=== PATIENT | female | born 1995 | race Asian ===

== ENCOUNTER → 2021-01-12 10:09 | Outpatient (CLI) | payer OTHER, MEDICAID, SELFPAY ==
[2021-01-12 12:48] LABS: HCG Quantitative /Beta subunit 1967.3 mIU/mL
== END ==
PROVIDERS: PCP Family Medicine; Referring Provider Family Medicine; Visit Provider Family Medicine
DX: Z34.90 Encounter for supervision of normal pregnancy, unspecified, unspecified trimester (principal)
CPT/HCPCS: 36415; 84702

== ENCOUNTER → 2021-01-16 11:33 | Outpatient (CLI) | payer OTHER, MEDICAID, SELFPAY ==
[2021-01-16 14:27] LABS: HCG Quantitative /Beta subunit 11183 mIU/mL
== END ==
PROVIDERS: PCP Family Medicine; Referring Provider Family Medicine; Visit Provider Family Medicine
DX: Z34.90 Encounter for supervision of normal pregnancy, unspecified, unspecified trimester (principal)
CPT/HCPCS: 36415; 84702

== ENCOUNTER → 2021-02-05 11:02 | Outpatient (CLI) | payer OTHER, MEDICAID, SELFPAY ==
[2021-02-05 12:20] LABS: Add Manual Diff / Slide Review NO; Basophils Absolute Auto 0 /uL (0-100); Basophils Percent Auto 0.2 % (0-2); Eosinophils Absolute Auto 0 /uL (0-450); Eosinophils Percent Auto 0.2 % (2-4); Hematocrit 39.4 % (36-46); Hemoglobin 13.3 g/dL (12.0-16.0); Lymphocytes Absolute Auto 1200 /uL (1100-4500); Lymphocytes Percent Auto 16.3 % (25-40); Mean Corpuscular HGB Conc 33.8 % (30-36); Mean Corpuscular Hemoglobin 30.8 PG (26-34); Monocytes Absolute Auto 500 /uL (0-900); Monocytes Percent Auto 6.5 % (3-14); Neutrophils Absolute Auto 5700 /uL (1500-7000); Neutrophils Percent Auto 76.8 % (50-75); Platelet Count 249 X10^3/uL (150-400); Red Blood Cell Count 4.32 X10^6/uL (4.0-5.2); Red Cell Distribution Width 12.7 % (11.6-14.8); White Blood Cell Count 7.4 X10^3/uL (4.5-11.0)
[2021-02-05 13:55] LABS: Appearance Urine UA CLEAR; Bacteria Urine None Seen; Bilirubin Urine UA NEGATIVE (NEGATIVE); Color Urine UA YELLOW; Glucose Urine UA NEGATIVE (Negative); Ketones Urine UA NEGATIVE (NEGATIVE); Leukocyte Esterase Urine UA 1+ (NEGATIVE); Nitrite Urine UA NEGATIVE (Negative); Occult Blood Urine UA NEGATIVE (Negative); Protein Urine UA NEGATIVE (Negative); Specific Gravity Urine UA <=1.005 (1.000-1.035); Urobilinogen Urine UA 0.2 E.U./dL (0.2); WBC Urine None Seen (0-5/HPF)
[2021-02-05 14:25] LABS: RBC Urine 0-1/HPF (0-5/HPF); Squamous Epithelial Cell Urine 5-10 /HPF (0-5/HPF)
[2021-02-05 17:28] LABS: HIV 1 & 2 Ab/Ag 4th Gen Combo NEGATIVE (NEGATIVE); Hep C Virus Ab w/Reflex Quant NEGATIVE s/c (NEGATIVE); Hepatitis B Surface Antigen NEGATIVE s/c (NEGATIVE); Rubella Antibody IgG 17.8 IU/mL (>15)
[2021-02-06 08:16] LABS: RPR Screen Non Reactive (Non Reactive)
[2021-02-06 08:46] LABS: Varicella IgG Antibody 1383 index (Immune >165)
== END ==
PROVIDERS: PCP Family Medicine; Referring Provider Family Medicine; Visit Provider Family Medicine
DX: Z34.01 Encounter for supervision of normal first pregnancy, first trimester (principal)
CPT/HCPCS: 36415; 80055; 81003; 81015; 86787; 86803; 86850; 86900; 86901; 87086; 87389

== ENCOUNTER → 2021-04-04 11:43 | Outpatient (CLI) | payer OTHER, MEDICAID, SELFPAY ==
[2021-04-06 21:14] LABS: AFP, Serum 63.4 ng/mL (.); Calc Gestational Age EDD (.); Estriol, Free 2.39 ng/mL (.); Inhibin A, Dimeric 183.95 pg/mL (.); Inhibin A, MoM 1.02 (.); Maternal Ethnicity Other (.); Maternal Weight 121 lbs (.); Number of Fetuses No (.); OSBR Risk 1 IN 2591 (.); Results Report (.); Test Results *Screen Negative* (.); hCG, MoM 1.64 (.); hCG, Serum 70593 mIU/mL (.)
== END ==
PROVIDERS: PCP Family Medicine; Referring Provider Family Medicine; Visit Provider Family Medicine
DX: Z34.90 Encounter for supervision of normal pregnancy, unspecified, unspecified trimester (principal); Z3A.16 16 weeks gestation of pregnancy
CPT/HCPCS: 36415; 82105; 82677; 84702; 86336

== ENCOUNTER → 2021-04-26 10:26 | Outpatient (CLI) | payer OTHER, MEDICAID, SELFPAY ==
--- NOTE | 2021-04-26 10:28 | DI.US.S_ITS ---
PROCEDURE: US OB >= 14 WEEKS FETUS INDICATIONS: ANATOMY US OUTSIDE/PRIOR DATING DATA: Last menstrual period (LMP): December 10, 2020 . LMP-based estimated date of delivery (GISEL): September 16, 2021 . First dating scan (date and location): [facility]; April 26, 2021 . Estimated date of delivery (GISEL) from first dating scan: September 15, 2021 . TECHNIQUE: Real-time scanning was performed of the fetus, with image documentation and biometric measurements. COMPARISON: None. FINDINGS: General: A single living intrauterine gestation is present. Presentation: Variable. Placenta: Placental position is posterior , without previa. Amniotic fluid index: 12.3 cm, normal range is 5-24 cm. heart rate: 153 beats per minute. Maternal cervical canal: 4.2 cm long. Normal lower limit is 2.5 cm. biometrics: Biparietal diameter: 4.5 cm Head circumference: 16.5 cm Abdominal circumference: 14.3 cm Femur length: 3.4 cm Composite gestational age from present scan: 19 weeks, 5 days Estimated weight and percentile: 324 g +/-48 g; 69th percentile Measurement variability for biometric dating: +/- 7 days from 14 weeks to 15 weeks 6 days gestation, +/- 10 days from 16 weeks to 21 weeks 6 days gestation, +/- 2 weeks from 22 weeks to 27 weeks 6 days gestation, +/- 3 weeks for 28 weeks gestation or later. weight reference: 4500 g or EFW >90/95% is considered macrosomia or large for gestational age. EFW <10% is small for gestational age. EFW 5% or less is considered intra-uterine growth restriction. Anatomic survey: Neuro: Ventricles are non-dilated at less than 10 mm. Bilateral choroid plexus cysts are is noted. Cisterna magna is normal at 3-11 mm. Cerebellum is normal in size and morphology. Nuchal skin fold: Normal at less than 6 mm between 14-21 weeks gestational age. Face: Nose and lips, facial profile are normal. Spine: No evidence for spina bifida. Heart: 4-chambered heart is present, with normal ventricular outflow tracts. Diaphragm: Diaphragm is intact. Stomach: Left-sided stomach is present. Kidneys: No hydronephrosis. Normal is less than 5 mm in 2nd trimester, less than 7 mm in 3rd trimester. Cord: 3-vessel cord and inserts approximately 1 cm from the placental edge. Bladder: Normal in size. Extremities: All 4 extremities identified. IMPRESSION: Live single intrauterine gestation as detailed above. Dictated by: Mj Schuster M.D. on 04/26/2021 at 13:42 Approved by: Mj Schuster M.D. on 04/26/2021 at 13:48
== END ==
PROVIDERS: PCP Family Medicine; Referring Provider Family Medicine; Visit Provider Family Medicine
DX: Z34.90 Encounter for supervision of normal pregnancy, unspecified, unspecified trimester (principal); Z3A.20 20 weeks gestation of pregnancy
CPT/HCPCS: 76811

== ENCOUNTER → 2021-06-25 09:53 | Outpatient (CLI) | payer OTHER, MEDICAID, SELFPAY ==
[2021-06-25 14:48] LABS: Hematocrit 35.3 % (36-46); Hemoglobin 12.1 g/dL (12.0-16.0)
[2021-06-25 15:24] LABS: GTT (PREG) 1 Hour PP 50gm Dose 133 mg/dL (76-139)
== END ==
PROVIDERS: PCP Family Medicine; Referring Provider Family Medicine; Visit Provider Family Medicine
DX: Z34.90 Encounter for supervision of normal pregnancy, unspecified, unspecified trimester (principal); Z3A.26 26 weeks gestation of pregnancy
CPT/HCPCS: 36415; 82950; 85014; 85018; 86850

== ENCOUNTER → 2021-08-27 09:28 | Outpatient (CLI) | payer OTHER, MEDICAID, SELFPAY ==
[2021-08-28 09:14] LABS: Strep Grp B PCR NEG for Grp B Strep
== END ==
PROVIDERS: PCP Family Medicine; Visit Provider Family Medicine
DX: Z36.85 Encounter for antenatal screening for Streptococcus B (principal); Z3A.37 37 weeks gestation of pregnancy
CPT/HCPCS: 87653

== ENCOUNTER 2021-09-07 21:13 | Inpatient (IN) | payer OTHER, MEDICAID, SELFPAY ==
[2021-09-07 22:25] VITALS: BP 121/70
[2021-09-07 23:11] LABS: Add Manual Diff / Slide Review NO; Basophils Absolute Auto 100 /uL (0-100); Basophils Percent Auto 0.7 % (0-2); Eosinophils Absolute Auto 0 /uL (0-450); Eosinophils Percent Auto 0.4 % (2-4); Hematocrit 39.9 % (36-46); Hemoglobin 13.5 g/dL (12.0-16.0); Lymphocytes Absolute Auto 1700 /uL (1100-4500); Mean Corpuscular HGB Conc 33.7 % (30-36); Mean Corpuscular Hemoglobin 31.1 PG (26-34); Mean Corpuscular Volume 92.2 fL (80-100); Monocytes Absolute Auto 600 /uL (0-900); Monocytes Percent Auto 8.2 % (3-14); Neutrophils Absolute Auto 5500 /uL (1500-7000); Neutrophils Percent Auto 69.7 % (50-75); Platelet Count 192 X10^3/uL (150-400); Red Blood Cell Count 4.33 X10^6/uL (4.0-5.2); Red Cell Distribution Width 13.7 % (11.6-14.8); White Blood Cell Count 7.9 X10^3/uL (4.5-11.0)
[2021-09-07 23:30] LABS: COVID19 -Nasal RAPID Negative (Negative)
--- NOTE | 2021-09-08 02:22 | PM.OBPRVD ---
Labor & Delivery Delivery date: 09/08/21 Cervical ripening method: none Induction method: none Delivery monitor: external FHT Route of delivery: Episiotomy description: None L&D Laceration Description: Perineal - 2nd Degree Delivery repair: vicryl Estimated blood loss (mL): 200 Anesthesia Type: None Complications: None Narrative: PROCEDURE: at 38w6d presented in active labor and was admitted to Labor and Delivery. The patient progressed through the 1st stage over 8 hours. Pain was controlled with natural methods. Intermittent auscultation showed reassuring FHT. The patient progressed through the 2nd stage over 40 minutes and delivered a viable female infant with APGARs 9/9 at 1:44 via without complications. The cord was cut and clamped after it stopped pulsating. The perineum and vagina were inspected with 2nd degree perineal laceration repaired with 2-O Vicryl. PREPROCEDURE DIAGNOSIS: Intrauterine at 38w6d GBS negative RH positive POSTPROCEDURE DIAGNOSIS: Intrauterine at 38w6d, delivered Same as preprocedure Baby 1: Infant gender: Female Presentation: vertex Position: Right Occiput Anterior Placenta delivery description: Spontaneous Cord Vessel Description: 3 Vessels score (1 min): 9 score (5 min): 9 weight: 7 lb 0.03 oz Plan for aftercare: Routine care
--- NOTE | 2021-09-08 02:24 | P.HPOB_ITS ---
OB HPI Date/Time Date of admission: 09/07/21 Date Patient Seen: 09/08/21 Time Patient Seen: 00:50 History of Present Condition Chief complaint: maternity GISEL Calculator Estimated Delivery Date Method Current WG Current Estimate 09/16/21 Manual 38w 6d Final GISEL - NATALYA Other Estimates 09/16/21 LMP (Certain) 38w 6d 09/17/21 Ultrasound #1 38w 5d Estimated Gestational Age (weeks): 38w6d : 1 Para: 0 Narrative: Pt is a 26yo at 38w6d who presented with regular painful contractions. She reports contractions starting last night, increasing in frequency and intensity since then. No LOF or vaginal bleeding. She is feeling her baby move regularly . There have been no complications with the pts . care: good care, initiated at week # (8) and pounds weight gain (25) Dating criteria OB: LMP confirmed by 1st trimester US Ultrasounds: normal 1st trimester US and normal mid trimester US Obstetrical complications: none Medical complications OB: none Preadmission Labs Last OB Lab Results: Blood Type O Positive 09/07/21 23:00 09/07/21 Antibody Screen Negative 09/07/21 23:00 09/07/21 Hematocrit 39.9 % (36-46) 09/07/21 23:00 09/07/21 Hemoglobin 13.5 g/dL (12.0-16.0) 09/07/21 23:00 09/07/21 Hepatitis B Surface Antigen Negative s/c (NEGATIVE) 02/05/21 11:09 02/05/21 Hepatitis C Antibody Negative s/c (NEGATIVE) 02/05/21 11:09 02/05/21 Rubella Antibody 17.8 IU/mL (>15) 02/05/21 11:09 02/05/21 Varicella-Zoster IgG Antibody 1383 index (Immune >165) 02/05/21 11:09 02/05/21 Glucose 1 Hour 133 mg/dL (76-139) 06/25/21 10:43 06/25/21 Group B Streptococcus (PCR) Neg for grp b strep 08/27/21 09:28 08/27/21 -: Urine: negative Genetic Screens: Quad screen: Normal External Labs -: Urine: negative Evaluation Evaluation Baseline heart rate: 150 Variability: Moderate (11-25) monitor accelerations: Present Monitor Decelerations: Absent Contraction Frequency (minutes): 3 Status: Category l Dilation (cm): 10 Effacement (%): 100 station: +2 [facility] Medical History (Updated 01/29/21 @ 16:06 by Daphnie Nobles RN) Allergies (~1999) Eczema Headache Migraines Scoliosis (~2010) Seasonal allergies Family History (Updated 01/29/21 @ 16:03 by Daphnie Nobles RN) Father Diabetes mellitus History of heart disease Mother Hypertension Allergic rhinitis Allergic sinusitis Brother History of heart disease Hyperlipidemia Hypertension Heavy drinker of alcohol Heavy smoker Grandfather No problems noted. Grandmother No problems noted. Grandfather CVA (cerebral vascular accident) Grandmother Diabetes mellitus Family/Other Hypertension History of heart disease Brother No problems noted. 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 smokes and vapes : discussed) alcohol intake: former (pre- : 1-2 drinks each month/wine) substance use type: does not use during the past year weight has: remained stable well-balanced diet: rarely or never eating out: rarely or never Meds Home Medications and Allergies Home Medications Medication Instructions Recorded Confirmed Type prenat.vits,tomás,[id number] 1 tab PO DAILY 04/28/20 09/07/21 History breast pump #1 ea 05/28/21 09/04/21 Rx Allergies Allergy/AdvReac Type Severity Reaction Status Date / Time cleaning product AdvReac Mild Itchy Uncoded 09/07/21 22:23 throat; runny nose seafood AdvReac Mild Itching, Uncoded 09/07/21 22:23 swelling to throat Objective Labs Result Diagrams: 09/07/21 23:00 Labs: Laboratory Results - last 24 hr 09/07/21 09/07/21 09/07/21 23:00 23:00 23:00 WBC 7.9 RBC 4.33 Hgb 13.5 Hct 39.9 MCV 92.2 MCH 31.1 MCHC 33.7 RDW 13.7 Plt Count 192 Neut % (Auto) 69.7 Lymph % (Auto) 21.0 L [place] % (Auto) 8.2 Eos % (Auto) 0.4 L Baso % (Auto) 0.7 Neut # (Auto) 5500 Lymph # (Auto) 1700 [place] # (Auto) 600 Eos # (Auto) 0 Baso # (Auto) 100 SARS-CoV-2 (PCR) Negative Blood Type O Positive Antibody Screen Negative Assessment and Plan Assessment and Plan Assessment and Plan narrative: 26yo at 38w6d here in active labor. GBS negative, Rh positive. No complications with . - Expectant management, anticipate - FHT reassuring, intermittent auscultation - GBS negative, no prophylaxis needed - Natural methods for pain control
[2021-09-08] MEDS: OXYTOCIN PREMIX 30 UNIT/500 ML PLAST..BAG 200 UNIT IV (02:39)
[2021-09-08] MEDS: LACTATED RINGERS 1,000 ML 100 ML IV (02:39)
[2021-09-08] MEDS: PRENATAL VIT,CALC/IRON/FOLIC 1 TABLET 1 TAB PO (09:03)
[2021-09-08] MEDS: DOCUSATE 100 MG CAPSULE PO (09:04)
[2021-09-08] MEDS: DERMOPLAST SPRAY 20% 60 ML 1 SPRAY TOP (19:47)
--- NOTE | 2021-09-09 09:04 | P.DS_ITS ---
Discharge Providers Provider Date of admission: 09/07/21 21:13 Discharge Date: 09/09/21 Primary care physician: Willy El MD Consults: 09/08/21 17:51 Consult to Client Technical Specialist Routine Comment: 09/09/21 02:21 Consult to Client Technical Specialist Routine Comment: Discharge provider: Tatiana Hodges MD Summary Hospital Course Date Patient Seen: 09/09/21 Time Patient Seen: 09:04 Diagnoses: 38w5d gestation GBS negative Rh positive Hospital Course: The pt presented in active labor. She progressed to complete, using natural methods for pain control. She had an of a viable baby girl on 09/08/21. A 2nd degree perineal laceration was then repaired. There were no complications with delivery. , there were no complications. At the time of discharge she was voiding, ambulating, and passing flatus without difficulty. Her lochia was decreasing appropriately. Her pain was well controlled. She was with good latch. She will f/u in clinic in 6 weeks for check. Peripartum Data Delivery Method: Natural Vaginal Laceration Description: Perineal - 2nd Degree Episiotomy description: None Procedures: Spontaneous vaginal delivery complications: none 1: Gender: Female Disposition of : home Discharge Diagnosis (1) Spontaneous vaginal delivery: Status: Acute Status at Discharge Cognitive/behavioral status at discharge: oriented Functional status at discharge: independent ambulation Overall status at discharge: patient is progressing back to baseline Time Spent with Patient Time attestation: Total time spent providing and/or coordinating discharge services: Objective Labs Result Diagrams: 09/07/21 23:00 Exam Narrative Exam Narrative: Gen: NAD, sitting comfortably in bed, appears well CV: RRR, no murmurs Resp: clear to auscultation bilaterally Abd: soft, appropriately tender, fundus firm and below the umbilicus, nondistended Ext: no edema Discharge Plan Discharge Plan Patient Disposition: Home Discharge orders & Medications Prescriptions: New acetaminophen 325 mg Tablet 650 mg PO Q6HR PRN (Reason: Pain, Mild (1-3)) Qty: 30 0RF docusate sodium 100 mg Capsule 100 mg PO DAILY Qty: 30 0RF ibuprofen 600 mg Tablet 600 mg PO Q6HR PRN (Reason: Pain, Mild (1-3)) Qty: 30 0RF Continued (DME) breast pump Device See Rx Instructions .ROUTE .MEDSUPPLY Qty: 1 0RF Rx Instructions: As directed prenat.vits,tomás,[id number] Tablet 1 tab PO DAILY 0RF Follow up/Referrals: Willy El MD [Primary Care Provider] - Tatiana Hodges MD [Physician] - 6 Weeks Diet/Activity/Treatments Diet: Diet as Tolerated and Regular Skin/Wound/Dressing Care Report to your healthcare provider any signs of infection, such as:: chills, fever, increased pain and unusual drainage Visit Report/Discharge Packet Instructions: DI for Labor and Delivery, Vaginal Visit Report Forms: Patient Portal/API, Stroke Signs & Symptoms Discharge Data Primary Care Provider: Willy El
[2021-09-09 09:06] VITALS: BP 121/70; PULSE 78; RESP 16; TEMP 36.9
== END 2021-09-09 11:30 | disposition home or self-care (01) | DRG 807 ==
PROVIDERS: Admitting Provider Family Medicine; PCP Family Medicine; Referring Provider Family Medicine; Visit Provider Family Medicine
DX: O70.1 Second degree perineal laceration during delivery (principal); Z37.0 Single live birth; Z3A.38 38 weeks gestation of pregnancy; Z20.822 Contact with and (suspected) exposure to COVID-19
CPT/HCPCS: 36415; 59400; 85025; 86850; 86900; 86901; 87635; C9803; G0379; J2590